=== PATIENT | female | born 1985 | race Caucasian/White ===

== ENCOUNTER → 2017-04-04 | Outpatient (CLI) | payer OTHER ==
[~2017-04-04] MED LIST: BCP; FLUO-125; NORGTAB59
== END | disposition home or self-care (01) ==
LOC: LAB 15:00
PROVIDERS: ATTEND Physician Assistant
DX: Z20.9 Contact with and (suspected) exposure to unspecified communicable disease (principal)
CPT/HCPCS: 36415; 86706; 86735; 86762; 86765; 86787

== ENCOUNTER → 2017-06-11 | Outpatient (CLI) | payer OTHER | END | disposition home or self-care (01) | LOC: LAB 12:52 | PROVIDERS: ATTEND Physician Assistant | DX: Z20.9 Contact with and (suspected) exposure to unspecified communicable disease (principal) | CPT/HCPCS: 86765 ==

== ENCOUNTER → 2018-01-15 | Outpatient (CLI) | payer OTHER ==
[2018-01-17 09:11] LABS: Hepatitis B Surface Antibody Positive
[2018-01-17 09:28] LABS: Hepatitis B Surface Antigen Negative (Negative)
== END | disposition home or self-care (01) ==
LOC: LAB 15:52
PROVIDERS: ATTEND Preventive Medicine Preventive Medicine/Occupational Environmental Medicine
DX: S61.230A Puncture wound without foreign body of right index finger without damage to nail, initial encounter (principal); Z77.128 Contact with and (suspected) exposure to other hazards in the physical environment; X58.XXXA Exposure to other specified factors, initial encounter; Y92.481 Parking lot as the place of occurrence of the external cause; Y99.0 Civilian activity done for income or pay
CPT/HCPCS: 36415; 86703; 86706; 86803; 87340

== ENCOUNTER → 2018-04-26 | Outpatient (CLI) | payer OTHER | END | disposition home or self-care (01) | LOC: LAB 13:10 | PROVIDERS: ATTEND Nurse Practitioner | DX: S61.230A Puncture wound without foreign body of right index finger without damage to nail, initial encounter (principal); Z77.118 Contact with and (suspected) exposure to other environmental pollution; Y92.481 Parking lot as the place of occurrence of the external cause; Y99.0 Civilian activity done for income or pay | CPT/HCPCS: 36415; 86703; 86706; 86803; 87340 ==

== ENCOUNTER 2020-03-21 16:34 | Observation (INO) | payer OTHER | END 2020-03-21 17:55 | disposition home or self-care (01) | LOC: LDRP 16:34 → UNDOADMOB 16:34 → UNDODISOB 17:55 | PROVIDERS: ADMIT Obstetrics & Gynecology; ATTEND Obstetrics & Gynecology | DX: O62.9 Abnormality of forces of labor, unspecified (principal); Z3A.22 22 weeks gestation of pregnancy | CPT/HCPCS: 59025; 81002; G0378 ==